=== PATIENT | female | born 1950 | race Caucasian/White ===

== ENCOUNTER 2025-06-21 16:22 | Emergency (ER) | payer MEDICARE, BC, SELFPAY ==
[2025-06-21 16:27] VITALS: BP 142/85
[2025-06-21 17:37] VITALS: BP 142/71
--- NOTE | 2025-06-21 17:54 | EDRN ---
Pt attempting urine spec at this time.
[2025-06-21 17:55] VITALS: BP 142/71; BMI 22.4
[2025-06-21 18:07] VITALS: BP 143/73
[2025-06-21 18:10] VITALS: BP 143/73
--- NOTE | 2025-06-21 18:14 | EDRN ---
Pt states her pain floats around her abdomen, is 2/10 now, has bloating/belching, feeling full. Pt states she has been drinking today though not eating. Pt states normal BM yesterday AM. No N/V.
[2025-06-21 18:20] LABS: Hematocrit 44.2 % (37.0-47.0); Hemoglobin 15.1 g/dL (12.0-16.0); Mean Corp Hgb Conc. 34.2 g/dL (33.0-37.0); Mean Corpuscular Volume 94.2 fL (81.0-99.0); Nucleated Red Blood Cells % 0 %; Platelet Count 333 10^3/uL (130-400); Red Cell Dist. Width 14.3 % (11.5-14.5)
[2025-06-21 18:21] LABS: Urine Character Clear (Clear)
--- NOTE | 2025-06-21 18:26 | EDRN ---
Dr. Lincoln in room w/pt.
[2025-06-21 18:30] LABS: Urine Squamous Cell >30 /LPF (Few); Urine Urothelial Cell 0-2 /LPF (FEW)
[2025-06-21 18:31] LABS: Urine Red Blood Cell 0-2 /HPF (0-2); Urine White Cell 0-2 /HPF (0-5)
[2025-06-21 18:49] LABS: ALT (SGPT) 788 U/L (0-35); AST (SGOT) 680 U/L (14-36); Albumin 5.1 g/dl (3.5-5.0); Alkaline Phosphatase 526 U/L (38-126); Blood Urea Nitrogen 9 mg/dl (7-17); Calcium 10.3 mg/dl (8.4-10.2); Carbon Dioxide 29 mmol/L (22-30); Chloride 102 mmol/L (98-107); Estimated Creatinine Clearance 63 ml/min; Glucose 112 mg/dl (70-99); Lipase 261 U/L (23-300); Potassium 4.5 mmol/L (3.5-5.1); Sodium 137 mmol/L (135-145); Total Protein 8.0 g/dl (6.3-8.2); eGFR > 60.00
--- NOTE | 2025-06-21 18:49 | ED.GENMED ---
History of Present Illness
General
Chief Complaint: Abdominal Symptoms
Source: patient
Exam Limitations: none
Time Seen by Provider: 06/21/25 17:49
Nursing documentation reviewed up to this point in time: agreed with
History of Present Illness
History of Present Illness:
Patient presents to ED secondary to persistent upper abdominal pressure/bloating sensation over the past 3 days. Patient reports having had salad consisting of grilled chicken and ruth, the night before her symptoms started. Denies nausea,
vomiting, or diarrhea. In fact, patient has had bowel movements, without improving symptoms. Patient feels as though whenever she eats, including this morning, patient reports early fullness sensation with bloating. Denies previous history of
similar symptoms. Denies recent change in medications or diet. Denies sick contact. Denies recent travel.
Review of Systems
Review of Systems
Allergies reviewed?: Yes
All Other Systems: ROS reviewed and negative except as documented in HPI and ROS
Constitutional: Reports no symptoms
Respiratory: Reports no symptoms
Cardiac: Reports no symptoms
ABD/GI: Reports abdominal pain; Denies vomiting or diarrhea
: Reports no symptoms
Musculoskeletal: Reports no symptoms
Skin: Reports no symptoms
Phy Exam
Physical Exam
Physical Exam:
Physical Exam
General: no apparent distress, not acutely ill. afebrile
Head: nc/at. eomi
Neck: supple. no meningeal signs.
Heart: s1/s2 regular rate and rhythm
Lungs: no acute respiratory distress. clear bilaterally
Abdomen: normal bowel sounds. no distention. mild epigastric/RUQ tenderness to palpation
Neuro: alert and oriented x 3. no focal neurological deficits
Skin: no rash
Psychiatric: well kept. interactive and cooperative
Extremities: no edema. no calf tenderness.
Course
Orders/Labs/Results
Orders:
Orders
06/21/25 17:44
IV Insert/Care/Rem.- Treatment PRN
06/21/25 18:04
Complete Blood Count/With Diff Urgent
Comprehensive Metabolic Panel Urgent
Lipase Urgent
Monotest Urgent
Comment: ADD ON
06/21/25 18:06
Urinalysis Reflex To Culture Urgent
Date Specimen was Collected: 06/21/25
Time Specimen was Collected: 18:03
Urine Microscopic Reflex Cult Urgent
06/21/25 18:16
Hepatitis A IgM Antibody Urgent
Comment: ADD ON
Hepatitis B Core Ab, IgM Urgent
Comment: ADD ON
Hepatitis B Surface Antibody Urgent
Comment: ADD ON
Hepatitis B Surface Antigen Urgent
Comment: ADD ON
Hepatitis C Antibody Urgent
Comment: ADD ON
06/21/25 18:31
US Abdomen Complete/Upper Urgent
Comment:
Reason For Exam: epigastric/RUQ pain
06/21/25 20:20
Iohexol [Omnipaque] See Protocol PO NOW STA
06/21/25 20:26
Add On- LAB Urgent
Tests Added?: monotest
Abnormal Lab Results
06/21/25 06/21/25
18:04 18:06
MCH 32.2 H pg
(27.0-31.0)
MPV 10.6 H fL
(7.4-10.4)
Absolute Lymphs (auto) 1.1 L 10^3/uL
(1.2-3.4)
Lymphocytes % 16.1 L %
(20.5-51.1)
Glucose 112 H mg/dl
(70-99)
Calcium 10.3 H mg/dl
(8.4-10.2)
AST 680 H* U/L
(14-36)
ALT 788 H* U/L
(0-35)
Alkaline Phosphatase 526 H U/L
(38-126)
Albumin 5.1 H g/dl
(3.5-5.0)
Ur Occult Blood Reflex 1+ A
(Negative)
06/21/25 18:04
06/21/25 18:04
Vital Signs
Initial and Last Documented VS:
Initial Vital Signs
Temp Pulse Resp BP Pulse Ox
98.4 F 95 18 142/85 97
06/21/25 16:27 06/21/25 16:27 06/21/25 16:27 06/21/25 16:27 06/21/25 16:27
Last Documented Vital Signs
Temp Pulse Resp BP Pulse Ox
98.4 F 94 16 138/78 96
06/21/25 16:27 06/21/25 18:10 06/21/25 18:10 06/21/25 19:08 06/21/25 20:00
MDM/Problems Addressed
MDM/Problems Addressed:
Abnormal liver function tests noted, along with unremarkable abdominal ultrasound. Discussed with on-call GI physician, , who recommends obtaining CT abdomen pelvis with contrast. When discussing recommendation with patient and spouse,
patient states that she prefers to go home, as her pain is minimal or not present at this time. She would contact her primary care physician for urgent outpatient CT abdomen pelvis, along with repeat blood work. Return precautions provided, i.e.
fever/worsening pain/vomiting. Patient and spouse expressed understanding, at time of discharge.
*Pulse Oximetry
SaO2: 96
Oxygen Mode of Delivery: Room air
ED Attending Note
-
Portions of this chart may have been created with voice recognition software.� Occasional wrong word or��sound alike� substitutions may have occurred due to the inherent limitations of voice recognition software.
Discharge Plan
Departure
Patient Disposition: Home (Routine Discharge)
Date of Disposition: 06/21/25
Time of Disposition: 20:40
Patient with high blood pressure during this ER visit?: Yes
Condition: Fair
Discharge Problem:
Abdominal pain, Abnormal liver function test
Instructions: Abdominal Pain
Referrals:
Ashleigh Recinos MD [Active, Gastroenterology]
Enrique Eaton MD [Family Provider, Internal Medicine]
Activity Restrictions/Additional Instructions:
As discussed, please follow up with your primary care physician and/or referred to GI physician for further evaluation and treatment. Strongly recommend obtaining CT abdomen pelvis with oral and IV contrast, as soon as possible. In addition,
recommend repeating blood work within next 1 week. Please consider return to ED with worsening symptoms, i.e. fever/worsening pain/vomit.
Interventions
Interventions:
*Risk Screen - Suicide Last Done: 06/21/25 17:55
*General Assessment Last Done: 06/21/25 17:55
*Neglect/Abuse Screening Last Done: 06/21/25 17:55
*ED- Fall Risk Assessment Last Done: 06/21/25 17:55
*ED COVID-19 Vaccine History Last Done: 06/21/25 17:55
*ED Influenza Vaccine History Last Done: 06/21/25 17:55
*Nursing Disposition Last Done: 06/21/25 20:59
ZD-[id number]-[id number] Assessment Last Done: 06/21/25 17:57
Discharge Date and Time
Discharge Date/Time: 06/21/25 21:00
Print Language: FRENCH
[2025-06-21 19:08] VITALS: BP 138/78
[2025-06-22 14:40] LABS: Hepatitis B Surface Antigen Negative (Negative)
== END 2025-06-21 21:00 | disposition home or self-care (01) ==
LOC: EMR 16:22
PROVIDERS: EMERGENCY PHYSICIAN Emergency Medicine; FAMILY PHYSICIAN Internal Medicine
DX: R10.10 Upper abdominal pain, unspecified (principal); R79.89 Other specified abnormal findings of blood chemistry
CPT/HCPCS: 99284; 76700; 80053; 81003; 81015; 83690; 85025; 86308; 86705; 86706; 86709; 86803; 87340